=== PATIENT | male | born 2000 | race Caucasian/White ===

== ENCOUNTER 2022-09-28 12:29 | Emergency (ER) | payer BC, SELFPAY ==
[2022-09-28 12:54] VITALS: BP 149/86; PULSE 100; RESP 18; TEMP 36.4; O2SAT 98; BMI 28.8
--- NOTE | 2022-09-28 12:54 | ED_ITS ---
HPI - Skin/Abscess/Foreign Bdy General Chief complaint: Skin/Abscess/Foreign Body <Carolina Reyes NP - Last Filed: 09/28/22 12:55> Stated complaint: Tailbone cyst <Carolina Reyes NP - Last Filed: 09/28/22 12:55> Time Seen by Provider: 09/28/22 14:19 <Carolina Reyes NP - Last Filed: 09/28/22 12:55> History of Present Illness HPI narrative: 21-year-old male presents to ED for tailbone painful mass present for about a week after shaving that area. <SUZY Foster - Last Filed: 09/28/22 18:35> Related Data Home medications: Previous Rx's Medication Instructions Recorded cephalexin 500 mg capsule 500 mg PO QID 7 days #28 caps 09/28/22 doxycycline hyclate 100 mg tablet 100 mg PO BID 7 days #14 tabs 09/28/22 ibuprofen 400 mg tablet 400 mg PO Q6H PRN pain 7 days #28 09/28/22 tabs <Carolina Reyes NP - Last Filed: 09/28/22 12:55> Allergies/Adverse reactions: Allergies Allergy/AdvReac Type Severity Reaction Status Date / Time amoxicillin [From Augmentin] Allergy Hives Verified 09/28/22 15:12 clavulanic acid Allergy Hives Verified 09/28/22 15:12 [From Augmentin] <Carolina Reyes NP - Last Filed: 09/28/22 12:55> Review of Systems Review of Systems: Tailbone painful mass <SUZY Foster - Last Filed: 09/28/22 18:35> Yes all other systems are reviewed and are negative <SUZY Foster - Last Filed: 09/28/22 18:35> PMFSH Social History Social History: Social History Advance Directives: No Advance Directives Information Provided: No <Carolina Reyes NP - Last Filed: 09/28/22 12:55> Physical Exam Vital Signs: Vital Signs: Last Vital Signs Temp 97.6 F 09/28/22 12:54 Pulse 100 09/28/22 12:54 Resp 18 09/28/22 12:54 BP 149/86 H 09/28/22 12:54 Pulse Ox 98 09/28/22 12:54 O2 Del Method 09/28/22 12:54 BMI result Body Mass Index 28.8 <MARIA A Tavarez Last Filed: 09/28/22 12:55> Vital Signs: Last Vital Signs Temp 97.6 F 09/28/22 12:54 Pulse 100 09/28/22 12:54 Resp 18 09/28/22 12:54 BP 149/86 H 09/28/22 12:54 Pulse Ox 98 09/28/22 12:54 O2 Del Method 09/28/22 12:54 BMI result Body Mass Index 28.8 <SUZY Foster Last Filed: 09/28/22 18:35> Const: General: cooperative, healthy appearing, comfortable, no acute distress, well developed, alert, awake and Physically active <SUZY Foster Last Filed: 09/28/22 18:35> Orientation/consciousness: patient oriented x3 <SUZY Foster - Last Filed: 09/28/22 18:35> HEENT: Head: Yes normal to inspection, Yes No palpable skull fracture present, Yes normocephalic, Yes atraumatic and No abrasion <SUZY Foster Last Filed: 09/28/22 18:35> Eyes: General: appearance normal, both eyes and all related structures <SUZY Foster Last Filed: 09/28/22 18:35> Neck: Neck: Yes normal visual inspection, Yes full ROM, Yes no lymphadenopathy, Yes no meningeal signs, Yes trachea midline, Yes supple, No anterior neck swelling and No tender <SUZY Foster Last Filed: 09/28/22 18:35> Chest: Chest palpation & inspection: normal inspection of the chest and normal palpation of entire chest wall <SUZY Foster Last Filed: 09/28/22 18:35> Resp: Effort & Inspection: normal respiratory effort and able to speak in complete sentences <SUZY Foster Last Filed: 09/28/22 18:35> Auscultation: clear to auscultation bilaterally <SUZY Foster Last Filed: 09/28/22 18:35> Cardio: Jugular venous distension: no JVD <SUZY Foster Last Filed: 09/28/22 18:35> Heart sounds: S1 normal heart sound present and S2 normal heart sound present <SUZY Foster Last Filed: 09/28/22 18:35> GI: Inspection: Yes normal to inspection and No abdominal wall ecchymosis <SUZY Foster Last Filed: 09/28/22 18:35> Palpation (GI): Soft to palpation, not firm, nontender, no guarding and not rigid <SUZY Foster - Last Filed: 09/28/22 18:35> Skin: Full body images: 1. Fluctuant mass on palpation with erythema. Negative for any anal mass/tracking. <MARIA A Tavarez Last Filed: 09/28/22 12:55> Full body images: 1. Fluctuant mass on palpation with erythema. Negative for any anal mass/tracking. <SUZY Foster Last Filed: 09/28/22 18:35> Neuro: Other: Negative for any neuro deficit <SUZY Foster Last Filed: 09/28/22 18:35> General: patient oriented x3 and no meningeal signs <SUZY Foster Last Filed: 09/28/22 18:35> Extrem: General: Yes normal to inspection and Yes full ROM <SUZY Foster Last Filed: 09/28/22 18:35> Psych: Appearance: grossly normal, well kempt and not disheveled <SUZY Foster Last Filed: 09/28/22 18:35> Course Course Course Narrative: This is a rapid medical exam. Deferred HPI, ROS, PE to primary provider. 21 yo male [facility]. Unable to visualize in triage. May need I&D. VSS <MARIA A Tavarez Last Filed: 09/28/22 12:55> Reevaluation(s) Reevaluation #1: Abscess clean with sterile saline and Betadine iodine. 10 mL of lidocaine 1% used for anesthesia. Size 11 blade used for incision. Profound amount of yellow green pus draining foul odor. Forceps used to open pockets. Sterile saline used for flushing. Incisions superficial no need for packing. Patient to be due to antibiotics <SUZY Foster - Last Filed: 09/28/22 18:35> Time: 15:07 <SUZY Foster - Last Filed: 09/28/22 18:35> MDM - Skin/Abscess/Foreign Bdy MDM Narrative Medical decision making narrative: Abscess <SUZY Foster - Last Filed: 09/28/22 18:35> Discharge Plan Discharge Clinical Impression: Abscess of skin or subcutaneous tissue <Carolina Reyes NP - Last Filed: 09/28/22 12:55> Patient Disposition: Home, Self-Care <Carolina Reyes NP - Last Filed: 09/28/22 12:55> Instructions: Abscess (ED), Abscess Incision and Drainage (DC) <Carolina Reyes NP - Last Filed: 09/28/22 12:55> Additional Instructions: He will be discharged with antibiotics. Please follow-up with your primary care provider. Return to ED for worsening pain, profuse discharge, fever, chills, anal/rectal pain, any other concerning symptoms. <Carolina Reyes NP - Last Filed: 09/28/22 12:55> Prescriptions: New doxycycline hyclate 100 mg tablet 100 mg PO BID 7 Days Qty: 14 0RF cephalexin 500 mg capsule 500 mg PO QID 7 Days Qty: 28 0RF ibuprofen 400 mg tablet 400 mg PO Q6H PRN (Reason: pain) 7 Days Qty: 28 0RF <Carolina Reyes NP - Last Filed: 09/28/22 12:55> Interventions: ED Discharge Assessment Last Done: 09/28/22 15:24 <Carolina Reyes NP - Last Filed: 09/28/22 12:55> Discharge Date/Time: 09/28/22 15:25 <Carolina Reyes NP - Last Filed: 09/28/22 12:55> Print Language: Kenyan <MARIA A Tavarez Last Filed: 09/28/22 12:55>
== END 2022-09-28 15:25 | disposition home or self-care (01) ==
PROVIDERS: Emergency Provider Emergency Medicine; PCP Family Medicine
DX: L02.212 Cutaneous abscess of back [any part, except buttock and flank] (principal); Z79.899 Other long term (current) drug therapy
CPT/HCPCS: 10060; 90471; 99282; 99284